=== PATIENT | female | born 1960 | race Caucasian/White ===

== ENCOUNTER 2022-07-11 08:07 | Outpatient (CLI) | payer OTHER, SELFPAY | END 2022-07-11 08:08 | disposition home or self-care (01) | LOC: NFLDREF 07-12 00:25 | PROVIDERS: PCP Internal Medicine; Referring Provider Internal Medicine; Visit Provider Internal Medicine | DX: I10 Essential (primary) hypertension (principal); Z13.6 Encounter for screening for cardiovascular disorders | CPT/HCPCS: 80053; 80061 ==

== ENCOUNTER 2022-09-23 08:09 | Outpatient (CLI) | payer OTHER, SELFPAY ==
--- NOTE | 2022-09-23 08:15 | CRLHL7_ITS ---
For Patients: As a result of the Century Cures Act, medical imaging exams and procedure reports are released immediately into your electronic medical record. You may view this report before your referring provider. If you have questions, please contact your health care provider. BILATERAL SCREENING MAMMOGRAM WITH COMPUTER-AIDED DETECTION AND TOMOSYNTHESIS TECHNIQUE: CC and MLO views were obtained. These mammographic images have been obtained using full-field digital technique. These mammographic images were interpreted with the benefit of computer-aided detection. Breast Tomosynthesis was used in this interpretation. COMPARISON FILM: 09/20/21, 06/20/20, 04/15/19. FINDINGS: There are scattered areas of fibroglandular density IMPRESSION: There is no radiographic evidence for malignancy. ASSESSMENT: BI-RADS Category 1: Negative RECOMMENDATION: Routine screening mammogram in 1 year. A lay language report of this examination will be provided to the patient. Jacob Duval M.D. Diagnostic Radiologist [email or web address] LULU/Dictated by: Jacob Duval MD @ 09/23/2022 12:27:00 PM (Electronically Signed)
== END 2022-09-23 08:10 | disposition home or self-care (01) ==
LOC: MAMMO 08:11
PROVIDERS: PCP Internal Medicine; Visit Provider Internal Medicine
DX: Z12.31 Encounter for screening mammogram for malignant neoplasm of breast (principal)
CPT/HCPCS: 77063; 77067

== ENCOUNTER 2022-10-18 07:59 | Outpatient (CLI) | payer OTHER, SELFPAY | END 2022-10-18 08:00 | disposition home or self-care (01) | LOC: RAD 08:00 | PROVIDERS: PCP Internal Medicine; Visit Provider Internal Medicine | DX: I34.0 Nonrheumatic mitral (valve) insufficiency (principal); I35.0 Nonrheumatic aortic (valve) stenosis | CPT/HCPCS: 93306 ==

== ENCOUNTER 2023-09-26 08:06 | Outpatient (CLI) | payer OTHER, SELFPAY ==
--- OUTSIDE RECORDS SUMMARY | 2023-09-26 08:09 | XMS_ITS | Clinical Summary ---
Author Organization [email or web address] Address [place], [place] [address] Care Team Providers Care Stationary Boiler Fireman Name Role Phone Hamer, [facility] Primary Care Provider Vivi vailable Social History Tobacco Use Types Packs/Day Years Used Date Smoking Tobacco: Never Assessed Sex and Gender Information Value Date Recorded Sex Assigned at Not on file Gender Identity Not on file Sexual Orientation Not on file Plan of Treatment Health Maintenance Due Date Last Done Comments Tdap 1971 Depression screening for age 12+ 1972 HIV for age 15-65 1975 BMI (ht and wt on same day) for age 18+ 1978 Hepatitis C screening for ag e 18-79 1978 Tetanus booster 1980 Colonoscopy through age 75 2005 Lipids for age 45-75 2005 Mammogram for age 45-75 06/22/2008 06/23/19 08, 05/30/2005, 05/25/2004 Zoster (shingles) series for age 50+ (1 of 2) 2010 Pap test for age 21-65 10/29/2018 6, 10/30/2015 COVID-19 vaccine series ( season) 2022 Influenza for age 50-64 11/30/2023 Pneumococcal series for age 6-64 Aged Out No longer eligible b ased on patient's age to complete this topic Procedures Procedure Name Priority Date/Time Associated Diagnosis Comments CAFETERIA SUPERVISOR THIN PREP PAP SCREEN IMAGED Routine 10/30/2015 1:45 PM CDT XR MAMMO BILAT SCREEN FFDM (IA) Routine 06/23/2007 10:45 AM CDT Screening Mammogram Other from Last 3 Months or Most Recently Relevant to Health Maintenance Results * CAFETERIA SUPERVISOR THIN PREP PAP SCREEN IMAGED (10/30/2015 1:45 PM CDT) CAFETERIA SUPERVISOR CYTOLOGY See Anatomic Pathology case 11/01/2015 5:00 PM CDT [facility] Other (Cervical) Client Collect / Unknown 10/30/2015 1:45 PM CDT 10/31/2015 4:03 PM CDT Thalia Slater MD PATHOLOGY/CYTOLOGY [facility] [address] [place] [address], * XR MAMMO BILAT SCREEN FFDM (06/23/2007 10:45 AM CDT) MAMMOGRAM ACR 1 Negative Anatomical Region Laterality Modality BREASTS, Breast Left, Breast Right Bilateral Mammography 06/23/2007 10:4 5 AM CDT Narrative 06/23/2007 3:23 PM CDT SCREENING BILATERAL MAMMOGRAM CLINICAL INDICATIONS This is an asymptomatic 47-year-old patient. ?? TECHNIQUE Routine full-field digital craniocaudal and oblique views are obtained. ?? Computer aided detection is utilized. FINDINGS The study is compared to a previous mammogram from [facility] dated 05/30/05. ?? Mammographically, the breast tissue is dense. There are no suspicious masses or branching calcifications that are suspicious for malignancy. IMPRESSION There is no radiographic evidence for malignancy. ?? Recommend annual mammograms. The [facility] will provide results to the patient at the time of the appointment or by postcard through the mail. HWF/sls Procedure Note Carlos Logan MD - 06/23/2007 SCREENING BILATERAL MAMMOGRAM CLINICAL INDICATIONS This is an asymptomatic 47-year-old patient. TECHNIQUE Routine full-field digital craniocaudal and oblique views are obtained.Computer aided detection is utilized. FINDINGS The study is compared to a previous mammogram from [facility] dated 05/30/05. Mammographically, the breast tissue is dense. There are no suspiciousmasses or branching calcifications that are suspicious for malignancy. IMPRESSION There is no radiographic evidence for malignancy. Recommend annual mammograms. [facility] will provide results to thepatient at the time of the appointment or by postcard through the mail. HWF/sls Blanca Montes De Oca MD MAMMO from Last 3 Months or Most Recently Relevant to Health Maintenance Care Teams Stationary Boiler Fireman Relationship Specialty Start Date End Date [facility] PCP - General 04/20/10
--- OUTSIDE RECORDS SUMMARY | 2023-09-26 08:09 | XMS_ITS | Clinical Summary ---
Author Organization [facility] Address [address] [place] [address] Care Team Providers Care Research Agricultural Engineer Name Role Phone Edis Fam MD Primary Care Provider [phone] Source Comments You are receiving this document as you are listed as the primary care provider,follow-up provider, or the patient has been referred to you for consultation.This is in compliance with the Medicare and[facility] EHR Incentive Program,which states Providers who transition their patient to another setting of careor provider of care or refers their patient to another provider of care shouldprovide summary care record for each transition of care or referral. [employer] Allergies Active Allergy Reactions Criticality Noted Date Comments Duloxetine Unknown High 06/14/2020 Penicillins Other, see comments Low 07/17/2020 unknown Medications Medication Sig Dispensed Refills Start Date End Date Status clobetasol (TEMOVATE) 0.05 % ointment Twice A Day Active FLUoxetine (PROZAC) 20 MG tablet Daily 06/14/2020 Active cyclobenzaprine (FLEXERIL) 10 MG tablet Bedtime as needed 06/14/2020 Active Vitamins/Minerals Daily Active predniSONE (DELTASONE) 5 MG tabletIndications:Art hralgia, unspecified joint 6 tablets daily for 3 days then decrease to 4 tablets daily for 3 days, then 2 tablets daily for 3 days then 1 tablet daily for 3 days. 40 Tablet 07/21/2020 Active Active Problems Problem Noted Date Diagnosed Date Psoriasis 07/17/2020 Arthralgia of multiple joints 07/17/2020 Fibromyalgia 07/17/2020 Hypertension 07/17/2020 Obesity 07/17/2020 Vitamin D deficiency 07/17/2020 Resolved Problems Problem Noted Date Diagnosed Date Resolved Date Acute sinusitis 07/17/2020 01/15/2021 Immunizations Name Administration Dates Next Due Tdap 09/18/2015 Social History Tobacco Use Types Packs/Day Years Used Date Smoking Tobacco: Never Smokeless Tobacco: Never Sex and Gender Information Value Date Recorded Sex Assigned at Not on file Gender Identity Not on file Sexual Orientation Not on file Plan of Treatment Health Maintenance Due Date Last Done Comments Cervical Cancer Screening Due 1960 Colon Cancer Screening Plan Due 1960 Hep C Screening (Preventive Services) 1960 Mammogram 1960 HIV Screening (Preventive Services) 1976 Adult Preventive Visit 1978 Cholesterol 2005 Zoster/Shingles (1 of 2) 2010 COVID-19 Vaccine ( - 2022-2 4 season) 2022 Influenza (Season Ended) 2023 DTaP/Tdap/Td (2 - Tdap) 09/17/2025 09/18/2015 HepA Aged Out No longer eligi ble based on patient's age to complete this topic HepB Aged Out No longer eligi ble based on patient's age to complete this topic Hib Aged Out No longer eligi ble based on patient's age to complete this topic IPV (Polio) Aged Out No longer eligi ble based on patient's age to complete this topic MCV4 Aged Out No longer eligi ble based on patient's age to complete this topic Pneumococcal Aged Out No longer eligi ble based on patient's age to complete this topic Care Teams Research Agricultural Engineer Relationship Specialty Start Date End Date Edis Fam MD [address] [place] [address] PCP - General 06/15/20
--- NOTE | 2023-09-26 08:15 | CRLHL7_ITS ---
For Patients: As a result of the Century Cures Act, medical imaging exams and procedure reports are released immediately into your electronic medical record. You may view this report before your referring provider. If you have questions, please contact your health care provider. BILATERAL SCREENING MAMMOGRAM WITH COMPUTER-AIDED DETECTION AND TOMOSYNTHESIS TECHNIQUE: CC and MLO views were obtained. These mammographic images have been obtained using full-field digital technique. These mammographic images were interpreted with the benefit of computer-aided detection. Breast Tomosynthesis was used in this interpretation. COMPARISON FILM: 09/23/22, 09/20/21, 06/20/20. FINDINGS: There are scattered areas of fibroglandular density. IMPRESSION: There is no radiographic evidence for malignancy. ASSESSMENT: BI-RADS Category 1: Negative RECOMMENDATION: Routine screening mammogram in 1 year. A lay language report of this examination will be provided to the patient. Jacob Duval M.D. Diagnostic Radiologist [email or web address] SP/Dictated by: Jacob Duval MD @ 10/01/2023 1:10:00 PM (Electronically Signed)
== END 2023-09-26 08:07 | disposition home or self-care (01) ==
LOC: MAMMO 08:06
PROVIDERS: PCP Internal Medicine; Visit Provider Internal Medicine
DX: Z12.31 Encounter for screening mammogram for malignant neoplasm of breast (principal)
CPT/HCPCS: 77063; 77067

== ENCOUNTER 2023-12-16 07:26 | Outpatient (RCR) | payer OTHER, SELFPAY | END 2024-02-24 11:55 | disposition home or self-care (01) | PROVIDERS: PCP Internal Medicine; Visit Provider Internal Medicine | DX: M25.571 Pain in right ankle and joints of right foot (principal); M25.572 Pain in left ankle and joints of left foot; M79.672 Pain in left foot; M79.671 Pain in right foot; Z51.89 Encounter for other specified aftercare | CPT/HCPCS: 97110; 97162 ==

== ENCOUNTER 2024-06-08 08:00 | Outpatient (CLI) | payer OTHER, SELFPAY | END 2024-06-08 08:01 | disposition home or self-care (01) | LOC: NFLDREF 06-11 03:50 | PROVIDERS: PCP Internal Medicine; Referring Provider Internal Medicine; Visit Provider Internal Medicine | DX: R35.0 Frequency of micturition (principal); N39.0 Urinary tract infection, site not specified | CPT/HCPCS: 87086 ==

== ENCOUNTER 2024-12-24 08:06 | Outpatient (CLI) | payer OTHER, SELFPAY ==
--- NOTE | 2024-12-24 08:15 | CRLHL7_ITS ---
For Patients: As a result of the Century Cures Act, medical imaging exams and procedure reports are released immediately into your electronic medical record. You may view this report before your referring provider. If you have questions, please contact your health care provider. INDICATION: BILATERAL SCREENING MAMMOGRAM, ASYMPTOMATIC 64 Y/O FEMALE COMPARISON: 09/26/2023, 09/23/2022, 09/20/2021 TECHNIQUE: Digital mammogram in CC and MLO projections including computer-aided detection (CAD) and tomosynthesis. BREAST COMPOSITION: There are scattered areas of fibroglandular density. FINDINGS: No suspicious findings. ASSESSMENT: BI-RADS 2 Benign RECOMMENDATION: Annual screening mammogram. A lay language report of this examination will be provided to the patient. Dictated by: Jacob Duval MD @ 12/24/2024 12:29:37 (Electronically Signed)
== END 2024-12-24 08:07 | disposition home or self-care (01) ==
LOC: MAMMO 08:06
PROVIDERS: PCP Internal Medicine; Visit Provider Internal Medicine
DX: Z12.31 Encounter for screening mammogram for malignant neoplasm of breast (principal)
CPT/HCPCS: 77063; 77067

== ENCOUNTER 2025-01-10 08:05 | Outpatient (CLI) | payer OTHER, SELFPAY | END 2025-01-10 08:06 | disposition home or self-care (01) | LOC: NFLDREF 01-25 04:12 | PROVIDERS: PCP Internal Medicine; Referring Provider Internal Medicine; Visit Provider Internal Medicine | DX: I10 Essential (primary) hypertension (principal); E55.9 Vitamin D deficiency, unspecified; Z13.828 Encounter for screening for other musculoskeletal disorder; Z13.9 Encounter for screening, unspecified; Z13.6 Encounter for screening for cardiovascular disorders | CPT/HCPCS: 80053; 80061; 82306; 86038; 86200; 86431 ==